=== PATIENT | female | born 1945 | race Caucasian/White ===

== ENCOUNTER 2023-08-23 15:23 | Outpatient (OUT) | payer MEDICARE, SELFPAY ==
--- NOTE | 2023-08-23 | XR_ITS ---
[address] [address] Patient Name: PHILLIP REGALADO MRN: [id number] date: 1945 Sex: F Assigned Patient Location: [facility] Current Patient Location: [facility] Accession/Order Number: [id number] Exam Date: 08/23/2023 14:10 Report Date: 08/23/2023 14:46 At the request of: DOLORES ESPARZA Procedure: XR ankle CONOR min 3V STUDY: XR ankle CONOR min 3V, XR foot CONOR min 3V, [id number], [id number] HISTORY: LEFT ANKLE PAIN COMPARISON: None FINDINGS: Right foot and ankle: No acute fracture, dislocation, or suspicious osseous lesion. No lucent lesion of the talar dome. Small plantar calcaneal spur and mild Achilles insertional enthesopathy. Severe osteoarthritis of the first metatarsophalangeal joint. A small unfused accessory navicular is present. Small unfused ossicle along the dorsal medial aspect of the first tarsometatarsal joint. Small unfused focus of ossification along the lateral base of the fifth metatarsal. Mild osteoarthritis along the tarsometatarsal joints. Mild pes planus. Left foot and ankle: No acute fracture, dislocation, or suspicious osseous lesion. Unfused focus of ossification near the medial malleolus measuring 7 mm. This could be the sequela of remote trauma versus sensory ossicle. Mild osteoarthritis of the ankle mortise. No lucent lesion of the talar dome. Medium-sized plantar calcaneal spur as well as additional calcifications along the plantar fascia. Mild Achilles insertional enthesopathy. First metatarsophalangeal joint fusion hardware is intact. Small densely sclerotic lesion in the base of the third metatarsal likely representing benign bone island. Mild osteoarthritis at the second metatarsophalangeal joint. Pes planus. IMPRESSION: 1. No acute osseous abnormality. 2. 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 3. Unfused ossification along the medial malleolus of the left ankle could be the sequela of remote trauma. 4. 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 Electronically authenticated by: TOBIN CRUZ Date: 08/23/2023 14:46
--- NOTE | 2023-08-23 | XR_ITS ---
[address] [address] Patient Name: PHILLIP REGALADO MRN: [id number] date: 1945 Sex: F Assigned Patient Location: [facility] Current Patient Location: [facility] Accession/Order Number: [id number] Exam Date: 08/23/2023 14:10 Report Date: 08/23/2023 14:46 At the request of: DOLORES ESPARZA Procedure: XR foot CONOR min 3V STUDY: XR ankle CONOR min 3V, XR foot OCNOR min 3V, [id number], [id number] HISTORY: LEFT ANKLE PAIN COMPARISON: None FINDINGS: Right foot and ankle: No acute fracture, dislocation, or suspicious osseous lesion. No lucent lesion of the talar dome. Small plantar calcaneal spur and mild Achilles insertional enthesopathy. Severe osteoarthritis of the first metatarsophalangeal joint. A small unfused accessory navicular is present. Small unfused ossicle along the dorsal medial aspect of the first tarsometatarsal joint. Small unfused focus of ossification along the lateral base of the fifth metatarsal. Mild osteoarthritis along the tarsometatarsal joints. Mild pes planus. Left foot and ankle: No acute fracture, dislocation, or suspicious osseous lesion. Unfused focus of ossification near the medial malleolus measuring 7 mm. This could be the sequela of remote trauma versus sensory ossicle. Mild osteoarthritis of the ankle mortise. No lucent lesion of the talar dome. Medium-sized plantar calcaneal spur as well as additional calcifications along the plantar fascia. Mild Achilles insertional enthesopathy. First metatarsophalangeal joint fusion hardware is intact. Small densely sclerotic lesion in the base of the third metatarsal likely representing benign bone island. Mild osteoarthritis at the second metatarsophalangeal joint. Pes planus. IMPRESSION: 1. No acute osseous abnormality. 2. 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 3. Unfused ossification along the medial malleolus of the left ankle could be the sequela of remote trauma. 4. 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 Electronically authenticated by: TOBIN CRUZ Date: 08/23/2023 14:46
== END 2023-08-23 15:24 | disposition home or self-care (01) ==
LOC: RAD 15:23
PROVIDERS: Visit Provider Podiatrist Foot & Ankle Surgery
DX: M25.572 Pain in left ankle and joints of left foot (principal); M79.672 Pain in left foot
CPT/HCPCS: 73610; 73630